=== PATIENT | female | born 1955 | race Caucasian/White ===

== ENCOUNTER 2017-01-30 11:45 | Observation (INO) ==
--- NOTE | 2017-01-30 12:03 | Emergency Department Note ---
Disposition Clinical Impression: Chest pain Qualifiers: Chest pain type: unspecified Qualified Code(s): R07.9 - Chest pain, unspecified Disposition: Admitted As Inpatient Condition: Fair Referrals: Elvin Alejo MD [Primary Care Provider] - Forms: ED Satisfaction Letter Time of Disposition: 14:01 Chest Pain HPI - General Chief Complaint: ED Chest Pain Stated Complaint: chest pain Time Seen by Provider: 01/30/17 11:51 Source: patient Mode of arrival: ambulatory Limitations: no limitations Vital Signs Reviewed: Yes Nursing Notes Reviewed: Yes - History of Present Illness HPI Narrative: Patient is a 61-year-old who comes in complaining of chest pain. Been intermittent for quite some time however over the last day or so as gotten worse. She has a history of open-heart surgery. Pt complaint: chest pain Onset (ago): day(s) Duration: constant Onset: during rest Pain Location: left chest, right chest Severity scale (1-10): 8 Quality: tightness, aching Improves with: nothing Worsens with: nothing - Related Data Home Medications Medication Instructions Recorded Confirmed Alprazolam [Xanax] 2 mg PO TID 05/05/15 06/07/16 Amlodipine [Norvasc] 5 mg PO DAILY 05/05/15 06/07/16 Atorvastatin [Lipitor] 40 mg PO HS 05/05/15 06/07/16 Clopidogrel [Plavix] 75 mg PO DAILY 05/05/15 06/07/16 Ipratropium/Albuterol Neb [Duoneb] 3 ml IH Q6HR 05/05/15 06/07/16 Isosorbide MONOnitrate [Isosorbide 90 mg PO DAILY 05/05/15 06/07/16 Mononitrate] Metoprolol [Lopressor] 25 mg PO BID 05/05/15 06/07/16 Nitroglycerin [Nitrostat] 0.4 mg SL Q5M PRN 05/05/15 06/07/16 Oxycodone HCl 15 mg PO 5XD 05/05/15 06/07/16 Albuterol Sulfate [Albuterol 2 puff IH Q4HR PRN 06/07/16 06/07/16 Inhaler] Aspirin 81 mg PO Q48H 06/07/16 06/07/16 Ergocalciferol (VITAMIN D2) 50,000 unit PO TU 06/07/16 06/07/16 [Vitamin D2] Lansoprazole [Prevacid] 30 mg PO Q48H 06/07/16 06/07/16 Nitroglycerin [Nitrostat] 0.4 mg SL Q5M PRN 06/07/16 06/07/16 [place]-3/Dha/Epa/Fish Oil [Fish Oil 500 mg PO DAILY 06/07/16 06/07/16 500 mg Softgel] Oxygen 2 l NS HS 06/07/16 06/07/16 Previous Rx's Medication Instructions Recorded HYDROmorphone [Dilaudid] 4 mg PO Q6HR PRN #40 tablet 06/07/16 Allergies Allergy/AdvReac Type Severity Reaction Status Date / Time acetaminophen Allergy Mild Rash Verified 06/07/16 12:24 [From Darvocet-N] propoxyphene Allergy Mild Rash Verified 06/07/16 12:24 [From Darvocet-N] gabapentin [From Neurontin] AdvReac Unknown irregular Verified 06/07/16 12:24 heart beat nicotine AdvReac Unknown irregular Verified 06/07/16 12:24 heart beat duloxetine AdvReac Diarrhea Verified 06/07/16 12:24 hydrocodone [From Vicodin] AdvReac See Verified 06/07/16 12:24 Comments Nortriptyline AdvReac Diarrhea Verified 06/07/16 12:24 All systems ED: reviewed and negative except as stated. Constitutional: Denies: fever, chills, weakness, weight change Eyes: Denies: eye pain, eye discharge, vision change ENT ED: Denies: ear pain, throat pain, dental pain, hearing loss, epistaxis, congestion, dysphagia Cardiovascular: Reports: chest pain. Denies: palpitations, dyspnea on exertion , edema, syncope Respiratory: Denies: cough, dyspnea, wheezes, hemoptysis, stridor Gastrointestinal: Reports: abdominal pain. Denies: nausea, vomiting, diarrhea, constipation, hematemesis, melena, hematochezia Genitourinary: Denies: dysuria, frequency, hematuria, discharge Musculoskeletal: Denies: back pain, neck pain, arthralgia, myalgia Integumentary: Denies: rash, abrasion, lesions Neurological: Denies: headache, weakness, numbness, paresthesias, confusion, abnormal gait, vertigo Psychiatric: Denies: anxiety, depression, suicidal thoughts, homicidal thoughts , auditory hallucinations, visual hallucinations Endocrine: Denies: fatigue Hematological/Lymphatic: Denies: easy bleeding, easy bruising Allergic/Immunologic: Denies: facial swelling, urticaria Chest Pain PMH - Past Medical History Medical history: Reports: CHF, COPD, coronary artery disease, GERD, hyperlipidemia, hypertension, other Surgical history: Reports: cholecystectomy, coronary bypass (CABG), hysterectomy Psychiatric history: Reports: anxiety, depression 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 DIRECTOR history - Social History Smoking Status: Current every day smoker Alcohol use: Reports: none Drug use: Reports: none Physical Exam - General Limitations: no limitations General appearance: alert, anxious - Head Head exam: atraumatic, normocephalic, normal inspection - Eye Eye exam: Present: normal appearance, PERRL, EOMI - ENT ENT exam: normal exam, normal oropharynx, mucous membranes moist - Chest Chest inspection: Present: normal inspection, symmetric chest wall rise - Respiratory Respiratory exam: Present: normal lung sounds bilaterally - Cardiovascular Cardiovascular exam: Present: regular rate, normal rhythm, normal heart sounds - Abdominal Exam Abdominal exam: Present: soft, Non-Tender. Absent: tenderness, distention, guarding, rebound, rigidity - Extremities Exam Extremities exam: Present: normal inspection, full ROM. Absent: tenderness, pedal edema - Expanded Lower Extremity Exam Neurovascular/Tendon exam: Absent: motor deficit, sensory deficit, tendon deficit Gait: observed and normal - Back Exam Back exam: Present: normal inspection, full ROM. Absent: tenderness - Neurological Exam Neurological exam: Present: alert, oriented X3 - Psychiatric Psychiatric exam: Present: normal affect, normal mood - Skin Skin exam: Present: warm, dry, intact, normal color Course - Reevaluation(s) Reevaluation #1: 61-year-old previous heart history who comes in complaining of chest pain. Workup here in the emergency departments negative. Patient has not had a recent workup of her heart. Patient will be admitted for further evaluation. Time: 14:00 - Consultations Consultation #1: Discussed with Dr. Westbrook, admit. Time: 14:00 Vital Signs Temperature 98.1 F 01/30/17 11:47 Pulse Rate 76 01/30/17 11:47 Respiratory Rate 16 01/30/17 11:47 Blood Pressure 150/76 01/30/17 11:47 O2 Sat by Pulse Oximetry 96 01/30/17 11:47 Temperature 98.1 F 01/30/17 11:47 Pulse Rate 64 01/30/17 12:46 Respiratory Rate 18 01/30/17 12:46 Blood Pressure 124/64 01/30/17 12:46 O2 Sat by Pulse Oximetry 97 01/30/17 12:46 Oxygen Delivery Oxygen Delivery Room Air Chest Pain - Lab Data Lab results reviewed: Yes I reviewed the patient's lab results. Result diagrams: 01/30/17 12:42 01/30/17 12:42 Lab Results 01/30/17 01/30/17 01/30/17 Range/Units 12:42 12:42 12:42 WBC 6.1 (4.3-11.1) K/mcL RBC 5.13 H (3.82-4.97) M/mcL Hgb 15.0 (11.5-15.4) g/dL Hct 44.0 (35.3-44.9) % MCV 85.8 (83.0-100.0) fL MCH 29.2 (28.0-33.3) pg MCHC 34.1 (31.6-35.5) g/dL RDW 12.8 (11.5-14.5) % Plt Count 164 (140-400) K/mcL MPV 10.6 (9.4-12.4) fL Immature Gran % 0.3 (0-4) % Seg Neutrophils % 60.9 % Lymphocytes % 30.6 % Monocytes % 6.5 % Eosinophils % 1.0 % Basophils % 0.7 % Neutrophils # 3.7 (1.6-8.9) K/mcL Lymphocytes # 1.9 (0.6-4.6) K/mcL Monocytes # 0.4 (0.0-1.3) K/mcL Eosinophils # 0.1 (0.0-0.6) K/mcL Basophils # 0.0 (0.0-0.2) K/mcL PT 11.6 (9.4-12.1) Seconds INR 1.1 APTT 29.0 (26.0-36.0) Seconds Sodium (136-145) mEq/L Potassium (3.5-4.5) mEq/L Chloride (98-109) mEq/L Carbon Dioxide (19-29) mEq/L BUN (7-20) mg/dL Creatinine (0.57-1.11) mg/dL Est GFR ( Amer) (> 60) Est GFR (Non-Af Amer) (> 60) BUN/Creatinine Ratio (6-26) Glucose (70-99) mg/dL Calculated Osmolality (280-300) Calcium (8.6-10.8) mg/dL Total Bilirubin (0.2-1.2) mg/dL Direct Bilirubin (0.0-0.5) mg/dL Indirect Bilirubin (0.0-1.2) mg/dL AST (5-34) Units/L ALT (0-55) Units/L Alkaline Phosphatase (38-126) Units/L Troponin I (0-0.03) ng/mL B-Natriuretic Peptide 73 (0-100) pg/mL Serum Total Protein (6.0-8.3) g/dL Albumin (3.5-5.0) g/dL Globulin (2.4-3.5) g/dL Albumin/Globulin Ratio (1.1-2.2) Amylase (25-125) Units/L Lipase (8-78) Units/L 01/30/17 01/30/17 Range/Units 12:42 12:42 WBC (4.3-11.1) K/mcL RBC (3.82-4.97) M/mcL Hgb (11.5-15.4) g/dL Hct (35.3-44.9) % MCV (83.0-100.0) fL MCH (28.0-33.3) pg MCHC (31.6-35.5) g/dL RDW (11.5-14.5) % Plt Count (140-400) K/mcL MPV (9.4-12.4) fL Immature Gran % (0-4) % Seg Neutrophils % % Lymphocytes % % Monocytes % % Eosinophils % % Basophils % % Neutrophils # (1.6-8.9) K/mcL Lymphocytes # (0.6-4.6) K/mcL Monocytes # (0.0-1.3) K/mcL Eosinophils # (0.0-0.6) K/mcL Basophils # (0.0-0.2) K/mcL PT (9.4-12.1) Seconds INR APTT (26.0-36.0) Seconds Sodium 139 (136-145) mEq/L Potassium 3.6 (3.5-4.5) mEq/L Chloride 100 (98-109) mEq/L Carbon Dioxide 30 H (19-29) mEq/L BUN 9 (7-20) mg/dL Creatinine 0.85 (0.57-1.11) mg/dL Est GFR ( Amer) > 60 (> 60) Est GFR (Non-Af Amer) > 60 (> 60) BUN/Creatinine Ratio 11 (6-26) Glucose 93 (70-99) mg/dL Calculated Osmolality 286 (280-300) Calcium 9.6 (8.6-10.8) mg/dL Total Bilirubin 0.7 (0.2-1.2) mg/dL Direct Bilirubin 0.3 (0.0-0.5) mg/dL Indirect Bilirubin 0.4 (0.0-1.2) mg/dL AST 16 (5-34) Units/L ALT 15 (0-55) Units/L Alkaline Phosphatase 110 (38-126) Units/L Troponin I 0.00 (0-0.03) ng/mL B-Natriuretic Peptide (0-100) pg/mL Serum Total Protein 7.2 (6.0-8.3) g/dL Albumin 3.9 (3.5-5.0) g/dL Globulin 3.3 (2.4-3.5) g/dL Albumin/Globulin Ratio 1.2 (1.1-2.2) Amylase 65 (25-125) Units/L Lipase 33 (8-78) Units/L - Radiology Data Radiology results reviewed: Yes I reviewed the patient's radiology results. Chest X-Ray 01/30/17 11:51 IMPRESSION: 1. No acute abnormality. D/ / Boo Voss MD / Boo Voss MD Interpreting Provider: Boo Voss MD Abdomen/Pelvis CT 01/30/17 11:59 IMPRESSION: 1. No acute abnormality in the abdomen/pelvis. 2. Stable pneumobilia secondary to prior sphincterotomy. D/ / Mariusz Fuentes MD / Mariusz Fuentes MD Interpreting Provider: Mariusz Fuentes MD - EKG Data EKG attestation: Yes I reviewed and interpreted this EKG. EKG shows normal: sinus rhythm Rate: normal Rhythm: NSR Interpretation: no acute changes Heart Score - Score History: Slightly Suspicious EKG: Non Specific repolarisation Disturbance Age: 45-65 Risk Factors: Equal/Greater than 3 risk factor or history of atherosclerotic disease Troponin: Less than normal limit HEART Score Total: 4
[2017-01-30 12:52] LABS: Basophils % 0.7 %; Eosinophils # 0.1 K/mcL (0.0-0.6); Immature Granulocytes % 0.3 % (0-4); Lymphocytes # 1.9 K/mcL (0.6-4.6); Lymphocytes % 30.6 %; Mean Corpuscular HGB Conc 34.1 g/dL (31.6-35.5); Mean Corpuscular Hemoglobin 29.2 pg (28.0-33.3); Mean Corpuscular Volume 85.8 fL (83.0-100.0); Mean Platelet Volume 10.6 fL (9.4-12.4); Monocytes # 0.4 K/mcL (0.0-1.3); Monocytes % 6.5 %; Neutrophils # 3.7 K/mcL (1.6-8.9); Platelet Count 164 K/mcL (140-400); Red Blood Count 5.13 M/mcL (3.82-4.97); Red Cell Distribution Width 12.8 % (11.5-14.5); Segmented Neutrophils % 60.9 %
[2017-01-30 13:00] LABS: INR 1.1; Prothrombin Time 11.6 Seconds (9.4-12.1)
[2017-01-30 13:06] LABS: Alanine Aminotransferase 15 Units/L (0-55); Albumin 3.9 g/dL (3.5-5.0); Albumin/Globulin Ratio 1.2 (1.1-2.2); Alkaline Phosphatase 110 Units/L (38-126); Amylase 65 Units/L (25-125); Aspartate Amino Transferase 16 Units/L (5-34); BUN/Creatinine Ratio 11 (6-26); Bilirubin,Direct 0.3 mg/dL (0.0-0.5); Bilirubin,Indirect 0.4 mg/dL (0.0-1.2); Bilirubin,Total 0.7 mg/dL (0.2-1.2); Blood Urea Nitrogen 9 mg/dL (7-20); Calcium 9.6 mg/dL (8.6-10.8); Carbon Dioxide 30 mEq/L (19-29); Chloride 100 mEq/L (98-109); Globulin 3.3 g/dL (2.4-3.5); Glucose 93 mg/dL (70-99); Lipase 33 Units/L (8-78); Osmolality,Calculated 286 (280-300); Potassium 3.6 mEq/L (3.5-4.5); Sodium 139 mEq/L (136-145); Total Protein 7.2 g/dL (6.0-8.3); eGFR For African Americans > 60 (> 60); eGFR For Non-African Americans > 60 (> 60)
[2017-01-30] MEDS ORDERED: *HR* Morphine 2 MG/ML SYRINGE IVP ONE (13:58)
[2017-01-30] MEDS ORDERED: Ondansetron 4 MG/2 ML VIAL IVP ONE (13:59)
[2017-01-30] MEDS ORDERED: Naloxone 0.4 MG/ML INJ IVP PRN (15:47)
[2017-01-30] MEDS ORDERED: Ondansetron 4 MG/2 ML VIAL IVP PRN (15:47)
--- NOTE | 2017-01-30 15:48 | Electrocardiograph Report ---
[facility] [employer] [facility] [place] Test Date: 2017-01-30 Pat Name: Vivian Mahmood Department: 102 Room: 3B54 Gender: F Director Of Sleep: [facility] : 1955 Requested By: Shailesh Healy Order Number: [id number] Reading MD: Monster Drew MD Measurements Intervals [place] Rate: 69 P: 81 WI: 127 QRS: 75 QRSD: 83 T: 55 QT: 376 QTc: 395 Interpretive Statements SINUS RHYTHM POSSIBLE RIGHT ATRIAL ENLARGEMENT [0.25mV P WAVE] POSSIBLE LEFT ATRIAL ENLARGEMENT [-0.1mV P WAVE IN V1/V2] NONSPECIFIC ST \T\ T-WAVE ABNORMALITY WARNING: DATA QUALITY MAY AFFECT INTERPRETATION Electronically Signed On 01-30-2017 15:46:54 EDT by Monster Drew MD
[2017-01-30] MEDS ORDERED: Nitroglycerin 0.4 MG TAB.SUBL SL PRN (15:57)
[2017-01-30] MEDS ORDERED: Ipratropium/Albuterol Neb 3 ML IH PRN (15:57)
[2017-01-30] MEDS ORDERED: Aspirin 81 MG TAB.CHEW PO SCH (16:00)
--- NOTE | 2017-01-30 16:18 | Internal Med History&Physical ---
<Lobo Manzo - Last Filed: 01/30/17 19:41> Date of Encounter: 01/30/17 Time of Encounter: 15:00 Assessment and Plan (1) Chest pain Current visit: Yes Status: Acute Assess: Ms. Mahmood presents with chief complaint of chest pain that radiates across her chest from left to right and to her abdomen. Patient states that she has had abdominal pain for years but this pain is new and the fact that it radiates to her chest made her think she was having an MO. She qualifies the pain as a severe pressure which makes her nauseated. Patient states this type of chest pain is new. Patient is at moderate risk due to risk factors of CAD, CAD, hx of CABG, hyperlipidemia, and hypertension. Cardiac versus GI issue based on symptomatology and radiation from abdomen to chest. Will work up patient per chest pain protocol as well as GI symptoms. Plan: Continuous cardiac telemetry ordered Trend troponins x2 Supplemental O2 ordered with titration SpO2 monitoring Continue Plavix Continue aspirin therapy Continue Lopressor Continue nitroglycerin 0.4 SL Q15MIN PRN Monitor patient and vital signs Falls precautions/bed rest with bathroom privileges/[id number] due to severe pain Qualifiers: Chest pain type: unspecified Qualified Code(s): R07.9 - Chest pain, unspecified (2) Abdominal pain Current visit: Yes Status: Acute Assess: Patient states that she has had abdominal pain for years but this pain is new and the fact that it radiates to her chest made her think she was having an MO. She qualifies the pain as a severe pressure which makes her nauseated. She reports pain across her abdomen that is generalized. Ms. Mahmood also reports loss of appetite for some time and extreme unintended weight loss. Patient has history of GERD. Plan: IV Protonix 40 mg daily ordered Advance diet as tolerated Bedside swallow evaluation based on patient's report of easily choking on food NPO after midnight ordered due to possible GI consult/intervention in AM Monitor I&O Monitor daily weight Falls precautions/bed rest with bathroom privileges/[id number] due to severe pain Qualifiers: Abdominal location: generalized Qualified Code(s): R10.84 - Generalized abdominal pain (3) GERD (gastroesophageal reflux disease) Current visit: Yes Status: Acute Assess: Patient has history of GERD and abdominal pain. Patient states that her abdominal pain has become worse and more intense recently. Plan: IV Protonix 40 mg daily ordered Advance diet as tolerated Bedside swallow evaluation based on patient's report of easily choking on food NPO after midnight ordered due to possible GI consult/intervention in AM Monitor I&O Monitor daily weight Qualifiers: Esophagitis presence: esophagitis presence not specified Qualified Code(s) : K21.9 - Gastro-esophageal reflux disease without esophagitis (4) Hyperlipidemia Current visit: Yes Status: Chronic Assess: Patient has history of chronic hyperlipidemia. Plan: Lipid panel ordered Continue Lipitor Qualifiers: Hyperlipidemia type: unspecified Qualified Code(s): E78.5 - Hyperlipidemia , unspecified (5) Hypertension Current visit: Yes Status: Chronic Assess: Patient has history of chronic hypertension. Plan: Continue Lopressor Monitor patient and vital signs Qualifiers: Hypertension type: essential hypertension Qualified Code(s): I10 - Essential (primary) hypertension (6) COPD (chronic obstructive pulmonary disease) Current visit: No Status: Chronic Assess: Patient presents with history of chronic obstructive pulmonary disease. Patient currently smokes one half pack per day and is currently on 2 L of oxygen at home. Plan: Supplemental O2 ordered with titration if SpO2 <92% SpO2 monitoring Continue patient's inhalers and medications for COPD/asthma exacerbations/ control Patient educated on smoking cessation Nicotine patch contraindicated due to patient's report of adverse reaction with use. Patient's allergy list has been updated to reflect this allergy. Qualifiers: COPD type: chronic bronchitis Chronic bronchitis type: unspecified Qualified Code(s): J42 - Unspecified chronic bronchitis (7) DVT prophylaxis Current visit: Yes Status: Acute Assess: And placed on DVT prophylaxis due to DVT protocol and current bed rest status. Plan: Continue Plavix Continue aspirin therapy Anti-embolic hose ordered bilaterally for lower legs Internal Medicine - H&P: HPI Chief complaint: Chest pain/abdominal pain Admitted From: Emergency Dept Plans for Post Hospital Care: Home History of present illness: Ms. Mahmood is a 61 year old female who presents from the ED with chief complaint of chest pain that radiates across her chest from left to right and to her abdomen. Patient states that she has had abdominal pain for years but this pain is new and the fact that it radiates to her chest made her think she was having an MO. She qualifies the pain as a severe pressure which makes her nauseated. She reports pain across her abdomen that is generalized. Ms. Mahmood also reports loss of appetite for some time, extreme unintended weight loss, and pain/neck pain related to previous surgeries. Ms. Mahmood denies vomiting, hematemesis, diarrhea, constipation, melena, hematochezia, cough, SOB, wheezes, hemoptysis, edema, fever, chills, recent illness, or presyncope/syncope. Patient's medical history includes CHF, COPD, CAD, GERD, hyperlipidemia, hypertension, and melanoma. Patient is to be admitted as observation status continuous cardiac telemetry, troponins 2, IV Protonix 40 mg daily, supplemental O2 with SPO2 monitoring, and falls precautions to to patient's severe pain. Swallow evaluation to be done at bedside based on patient's reported becoming choked on food easily. Diet will be advanced as tolerated based on swallow evaluation.patient placed nothing by mouth aft GI procedure/consult in a.m. Past Med Surg Social Fam HX - Past Medical History Source: patient Medical history: CHF, COPD, coronary artery disease, GERD, hyperlipidemia, hypertension Psychiatric history: anxiety, depression - Past Surgical History Surgical History: cholecystectomy, coronary bypass (CABG), hysterectomy, orthopedic, other (Spinal/neck surgeries x2, placement of 2 rods in back, and metal plate in left hand) - Social History Smoking Status: Current every day smoker Packs per day: 1/2 PPD Smokeless Tobacco Status: No Alcohol use: none Drug use: none Occupational status: unemployed Current living situation: Home - Independent Activity Level: Independent ambulation (Has assistive walking device at home but does not use) Recent Out of Country Travel Within the Last 8 Weeks: No Exposure or Possible Exposure to Illness During Travel: No - Family History Sister Race: Family Member Ethnicity: Non- Living Status: Age at : 42 Cause of : Lung cancer Hx Family Respiratory Disorders: Yes (Lung cancer) Father Race: Family Member Ethnicity: Non- Living Status: Age at : 70 Cause of : HD Hx Family Cardiac Disorders: Yes (HD, HTN) Hx Family Endocrine Disorder: Yes (DM) Mother Race: Family Member Ethnicity: Non- Living Status: Age at : 65 Cause of : Breast cancer Hx Family Cancer: Yes (Breast cancer) Brother Race: Family Member Ethnicity: Non- Living Status: Age at : 42 Cause of : MO Hx Family Cardiac Disorders: Yes (MO) Internal Medicine - H&P: Meds Alprazolam [Xanax] 1 mg PO TID 05/05/15 [History] Amlodipine [Norvasc] 5 mg PO DAILY 05/05/15 [History] Atorvastatin [Lipitor] 40 mg PO HS 05/05/15 [History] Clopidogrel [Plavix] 75 mg PO DAILY 05/05/15 [History] Ipratropium/Albuterol Neb [Duoneb] 3 ml IH Q6HR PRN 05/05/15 [History] Metoprolol [Lopressor] 25 mg PO BID 05/05/15 [History] Oxycodone HCl 15 mg PO 5XD PRN 05/05/15 [History] Albuterol Sulfate [Albuterol Inhaler] 2 puff IH Q4HR PRN 06/07/16 [History] Aspirin 81 mg PO Q48H 06/07/16 [History] Nitroglycerin [Nitrostat] 0.4 mg SL Q5M PRN 06/07/16 [History] Oxygen 2 l NS HS 06/07/16 [History] Guaifenesin [Mucinex] 600 mg PO Q12H PRN 01/30/17 [History] Isosorbide MONOnitrate (24 HR) [Imdur] 30 mg PO DAILY 01/30/17 [History] Lactose-Reduced Food [Ensure Liquid] 1 bottle PO TID 01/30/17 [History] Omeprazole [PriLOSEC] 40 mg PO DAILY 01/30/17 [History] Ondansetron HCl [Zofran] 4 mg PO TID PRN 01/30/17 [History] Promethazine HCl 12.5 - 25 mg PO Q8H PRN 01/30/17 [History] Allergies acetaminophen [From Darvocet-N] Allergy (Mild, Verified 06/07/16 12:24) Rash bleeding ulcer from tylenol propoxyphene [From Darvocet-N] Allergy (Mild, Verified 06/07/16 12:24) Rash gabapentin [From Neurontin] Adverse Reaction (Unknown, Verified 06/07/16 12:24) irregular heart beat duloxetine Adverse Reaction (Verified 06/07/16 12:24) Diarrhea hydrocodone [From Vicodin] Adverse Reaction (Verified 06/07/16 12:24) See Comments bleeding lorazepam [From Ativan] Adverse Reaction (Verified 01/30/17 16:29) Rash Nortriptyline Adverse Reaction (Verified 06/07/16 12:24) Diarrhea unknown nicotine patch Adverse Reaction (Uncoded 01/30/17 16:29) Palpitations All Systems PM: A 10-system review of systems was performed and is negative for pertinent findings except as documented above in the HPI. - Constitutional Constitutional: as per HPI, anorexia, weakness, weight loss - EENT Eyes: no change in vision, no discharge, no pain, no photophobia Ears: no ear discharge, no ear pain, no tinnitus Nose, mouth and throat: no dysphagia, no nasal discharge, no neck pain, no sore throat - Breasts Breasts: as per HPI - Cardiovascular Cardiovascular ROS IM: as per HPI, chest pain - Respiratory Respiratory: no cough, no dyspnea, no wheezing, no excessive phlegm production - Gastrointestinal Gastrointestinal: as per HPI, abdominal pain, nausea - Genitourinary Genitourinary: no change in urinary stream, no dysuria, no flank pain, no hematuria Menstruation: as per HPI, post hysterectomy - Musculoskeletal Musculoskeletal ROS IM: as per HPI, back pain, neck pain - Integumentary Integumentary IM: no rash, no unusual bruising - Neurological Neurological ROS: no confusion, no convulsions, no focal weakness, no numbness, no tingling, no tremor(s) - Psychiatric Psychiatric: as per HPI, anxiety, change in appetite, depression - Endocrine Endocrine IM: as per HPI - Hematologic/Lymphatic Hematologic/Lymphatic: no easy bruising - Allergic/Immunologic Allergic/Immunologic: as per HPI - Constitutional Vitals: Temp Pulse Resp BP Pulse Ox 98.1 F 60 18 149/71 98 01/30/17 11:47 01/30/17 13:59 01/30/17 14:59 01/30/17 14:59 01/30/17 13:59 General appearance: Present: cooperative, A&O X 3, pleasant, severe distress, underweight, loss of weight, answers questions appropriately - Head Head exam: Present: atraumatic, normocephalic - Eye Eye exam: Present: PERRL, conjuntiva pink, sclera anicteric Pupils: Present: PERRL - ENT ENT exam: Present: normal exam, normal external ear exam - Neck Neck exam general surgery: Present: supple, trachea midline. Absent: lymphadenopathy - Respiratory Respiratory exam: Present: CTAB. Absent: accessory muscle use, rales, rhonchi, wheezes - Cardiovascular Cardiovascular exam: Present: RRR, +S1, +S2. Absent: diastolic murmur, gallop, rubs, systolic murmur - GI/Abdominal GI/Abdominal exam: Present: guarding, normal bowel sounds, soft, tenderness - Rectal Rectal exam: Present: deferred - Additional comments: exam deferred. - Extremities Exam Extremities exam: Present: warm, radial pulses palpable and symetrical. Absent : calf tenderness, cyanotic, pedal edema - Back Exam Back exam: Present: normal inspection - Neurological Exam Neurological exam: Present: CN II-XII intact, oriented X3, no focal deficits. Absent: pronater drift, facial droop, speech deficit - Psychiatric Psychiatric exam: Present: anxious - Skin Skin exam: Present: dry, intact Internal Med - H&P Results - Labs CBC & Chem 7: 01/30/17 12:42 01/30/17 12:42 - EKG Data EKG shows normal: sinus rhythm - EKG Data Prior EKG available for review: yes EKG comments: 01/30/17 16:32 EKG dated 12/21/15 shows sinus rhythm, inferior myocardial infarction (probably old). EKG dated 01/30/17 shows sinus rhythm, possible right atrial enlargement [ 0.25mV P wave], possible left atrial enlargement [-0.1mV P wave in V1/V2], nonspecific ST and T-wave abnormality. - Diagnostic Studies Chest x-ray Additional comments: Impressions Chest X-Ray 01/30/17 11:51 IMPRESSION: 1. No acute abnormality. D/ / Boo Voss MD / Boo Voss MD Interpreting Provider: Boo Voss MD CT scan - abdomen Additional comments: Impressions Abdomen/Pelvis CT 01/30/17 11:59 IMPRESSION: 1. No acute abnormality in the abdomen/pelvis. 2. Stable pneumobilia secondary to prior sphincterotomy. D/ / Mariusz Fuentes MD / Mariusz Fuentes MD Interpreting Provider: Mariusz Fuentes MD <Jenny Carver - Last Filed: 01/31/17 07:51> Date of Encounter: 01/31/17 Internal Medicine - H&P: HPI History of present illness: Ms. Mahmood is a 61 year old female All Systems PM: A 10-system review of systems was performed and is negative for pertinent findings except as documented above in the HPI. - Constitutional Vitals: Temp Pulse Resp BP Pulse Ox 98.0 F 55 14 138/76 96 01/31/17 03:49 01/31/17 03:49 01/31/17 03:49 01/31/17 03:49 01/31/17 03:49 Internal Med - H&P Results - Labs CBC & Chem 7: 01/31/17 01:27 01/31/17 01:27 Labs: Short CBC 01/31/17 Range/Units 01:27 WBC 8.2 (4.3-11.1) K/mcL Hgb 13.8 (11.5-15.4) g/dL Hct 40.3 (35.3-44.9) % Plt Count 149 (140-400) K/mcL Neutrophils # 4.7 (1.6-8.9) K/mcL BMP 01/31/17 01:27 Sodium 140 Potassium 4.2 Chloride 100 Carbon Dioxide 33 H BUN 17 Creatinine 0.91 Glucose 98 Calcium 9.1 Cardiac Enzymes 01/30/17 01/31/17 Range/Units 18:52 01:27 Troponin I 0.00 0.01 (0-0.03) ng/mL Liver Function 01/31/17 Range/Units 01:27 Total Bilirubin 0.6 (0.2-1.2) mg/dL AST 13 (5-34) Units/L ALT 9 (0-55) Units/L Alkaline Phosphatase 102 (38-126) Units/L Albumin 3.6 (3.5-5.0) g/dL Urine 01/30/17 Range/Units 17:30 Urine Color Yellow (Yellow) Urine Clarity Cloudy A (Clear) Urine pH 6.0 (5.0-8.0) pH Units Ur Specific [place]born 1.017 (1.010-1.025) Urine Protein Trace (Neg-Trace) mg/dL Urine Glucose (UA) Normal (Normal) mg/dL - Attending Attestation This is a late entry for a patient I examined and reviewed laboratory, imaging and all diagnostic data on 01/30/17. My medical decision-making was reviewed with Lobo Manzo - [place]. I agree with the documented findings, disposition and treatment plan as described above. History and exam by me shows: atypical chest pain in a patient at risk for ACS because of CAD s/p CABG and smoking. Negative troponins, EKG, CXR. Follow up serial troponins, and stress test in AM if negative. Patient also complains of upper abdominal pain related to hernia repair with mesh, dysphagia, and weight loss for years, I explained to the patient that she needs to be seen in the surgery clinic. Speech therapy consulted.
[2017-01-30] MEDS: *HR* OxyCODONE Immed Rel 5 MG TABLET PO PRN ×2 (17:38→23:31)
[2017-01-30] MEDS: Pantoprazole 40 MG VIAL IVP SCH (17:39)
[2017-01-30 18:46] LABS: Bilirubin,Urine Negative (Negative); Blood,Urine Trace (Negative); Clarity,Urine Cloudy (Clear); Color,Urine Yellow (Yellow); Glucose,Urine (UA) Normal (Normal); Ketones,Urine Negative (Negative); Leukocyte Esterase,Urine Moderate (Negative); Nitrite,Urine Negative (Negative); Protein,Urine Trace mg/dL (Neg-Trace); Specific Gravity,Urine 1.017 (1.010-1.025); Urobilinogen,Urine Normal (Normal)
[2017-01-30 18:47] LABS: Bacteria,Urine Moderate per hpf (None-Few); Hyaline Casts,Urine Few per lpf (None-Few); Squamous Epithelial Cell,Urine Many per lpf (None-Few); WBC,Urine 15-30 per hpf (0-3)
[2017-01-30] MEDS ORDERED: ALPRAZolam 1 MG TABLET PO SCH (21:00)
[2017-01-30] MEDS: ALPRAZolam 1 MG TABLET PO SCH (23:46)
[2017-01-31 01:46] LABS: Basophils % 0.4 %; Eosinophils # 0.1 K/mcL (0.0-0.6); Eosinophils % 1.6 %; Hematocrit 40.3 % (35.3-44.9); Hemoglobin 13.8 g/dL (11.5-15.4); Immature Granulocytes % 0.2 % (0-4); Lymphocytes # 2.8 K/mcL (0.6-4.6); Lymphocytes % 34.1 %; Mean Corpuscular HGB Conc 34.2 g/dL (31.6-35.5); Mean Corpuscular Hemoglobin 29.9 pg (28.0-33.3); Mean Corpuscular Volume 87.2 fL (83.0-100.0); Monocytes # 0.6 K/mcL (0.0-1.3); Monocytes % 6.8 %; Neutrophils # 4.7 K/mcL (1.6-8.9); Platelet Count 149 K/mcL (140-400); Red Blood Count 4.62 M/mcL (3.82-4.97); Segmented Neutrophils % 56.9 %
[2017-01-31 02:03] LABS: Alanine Aminotransferase 9 Units/L (0-55); Albumin 3.6 g/dL (3.5-5.0); Albumin/Globulin Ratio 1.4 (1.1-2.2); Alkaline Phosphatase 102 Units/L (38-126); Aspartate Amino Transferase 13 Units/L (5-34); BUN/Creatinine Ratio 19 (6-26); Bilirubin,Total 0.6 mg/dL (0.2-1.2); Blood Urea Nitrogen 17 mg/dL (7-20); Calcium 9.1 mg/dL (8.6-10.8); Carbon Dioxide 33 mEq/L (19-29); Chloride 100 mEq/L (98-109); Globulin 2.6 g/dL (2.4-3.5); Glucose 98 mg/dL (70-99); Osmolality,Calculated 292 (280-300); Phosphorous 4.8 mg/dL (2.3-4.7); Potassium 4.2 mEq/L (3.5-4.5); Sodium 140 mEq/L (136-145); Total Protein 6.2 g/dL (6.0-8.3); eGFR For African Americans > 60 (> 60); eGFR For Non-African Americans > 60 (> 60)
[2017-01-31] MEDS: *HR* OxyCODONE Immed Rel 5 MG TABLET PO PRN ×2 (06:13→14:58)
[2017-01-31] MEDS ORDERED: Regadenoson 0.4 MG/5 ML SYRINGE IVP ONE (06:24)
[2017-01-31] MEDS ORDERED: amLODIPine 5 MG TABLET PO SCH (09:00)
[2017-01-31] MEDS ORDERED: Isosorbide MONOnitrate (24 HR) 30 MG TAB.ER.24H PO SCH (09:00)
[2017-01-31] MEDS ORDERED: ALPRAZolam 1 MG TABLET PO SCH (09:00)
[2017-01-31] MEDS: Pantoprazole 40 MG VIAL IVP SCH (09:25)
[2017-01-31] MEDS: ALPRAZolam 1 MG TABLET PO SCH ×2 (09:25→14:58)
[2017-01-31 11:09] VITALS: BP 146/82
--- NOTE | 2017-01-31 12:28 | Nuclear Medicine Stress Report ---
Regadenoson Nuclear Stress Name: Vivian Mahmood Date of Study: 01/31/2017 Date: 1955 Ht: 64.0 in Medical Record#: [id number] Age: 61 Wt: 98.0 lb Gender: Female Order #: [id number] Location: [facility] Room: [facility] Supervising Provider: Magy Denny CNP Reading Physician: Johnna Hoover DO Ordering Physician: Rebecca Berg CNP Primary Care Physician: Elvin Alejo M.D. Stress Technologist: Prasad Jacinto, ANETTE, CCT Percussion Instrument Tuner: Hema Can Indications: Chest Pain, Coronary Artery Disease Impression: Perfusion imaging was negative for ischemia. 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 Pharmacologic ECG was negative for ischemia at the level of heart rate achieved. Gated EF = 66%. History: Hypertension Hypercholesteremia History of Smoking Prior PCI History of Coronary Artery Bypass Surgery Stress Test Summary: Stress Test Type: Pharmacologic Regadenoson 0.4mg/5ml given IV Baseline Information: Initial Heart Rate: 68 Blood Pressure: 140/82 Stress Information: Stress Time: 4 min 00 sec Test Terminated Due to (primary): Completed Protocol Maximum Blood Pressure: 172/100 Maximum Heart Rate: 103 Percent Maximum Heart Rate Achieved: 65 Double Product: [id number] METS Reached: 1 Symptoms: Shortness of breath, Stomach cramps, Headache Nuclear Summary: SPECT myocardial perfusion imaging using Tc99m Sestamibi given intravenously was performed at rest and following cardiac stress testing. The resting images were obtained following initial dose of 10.6 mCi. Following stress an additional dose of 34.5 mCi was given at peak exercise or 30 seconds post regadenoson infusion. Medication Given: Time Medication Dose Units Route Findings: Stress Note * Resting ECG demonstrated normal sinus rhythm with nonspecific ST abnormalities and increased voltage. * Pharmacologic stress ECG is negative for ischemia at level of heart rate achieved. * No arrhythmias were noted during stress. * Patient had no chest pain during stress. Hemodynamic responses * Normal hemodynamic responses to pharmacologic stress. Study Quality * Study quality was fair. Gated EF % * Gated EF = 66%. Left Ventricle * The left ventricle is not dilated. TID * No evidence of transient ischemic dilatation. Lung Uptake * There is no evidence of increase lung uptake. PERFUSION * There is a small sized, moderate intensity fixed perfusion defect involving the basal to mid inferolateral wall. Wall motion is abnormal in this area. Findings represent infarct. * Other areas demonstrate normal rest and stress perfusion. Updated by Johnna Hoover on 01/31/2017 12:21:42 PM electronically signed on 01/31/2017 12:23:51 PM with status of Final
--- NOTE | 2017-01-31 12:46 | Discharge Summary ---
Date of Encounter: 01/31/17 Time of Encounter: 09:10 - Discharge Diagnosis (1) Chest pain Priority: Primary Status: Acute Comments: Patient presented to the emergency room with midsternal chest heaviness for 2 days. Onset while she was sitting watching TV. It was intermittent, lasting 3- 4 hours at a time. She reports that she did have some nausea and shortness of breath with this. It became worse yesterday. Patient indicates pain that now at left upper abdomen/left inferior rib area. She says it feels like a pressure. She is not having the chest heaviness anymore, she said she did have it during the stress test however. She reports abdominal pain, midepigastric. She reports approximately 40-50 pound weight loss in 4 years. She says that she sees Dr. Sanchez for cardiology, she sees Dr. Worley for GI issues. She said that she recently had an EGD and colonoscopy and is unsure of the results. She said that she recently saw her primary care physician who is scheduled for multitude of tests for her. She was to have some test today, however she missed it due to being here. Stress test today showed gated EF 66%, negative for ischemia or infarct. Troponins were negative 3. EKG normal sinus rhythm without signs of ischemia. S1 and S2, regular rate and rhythm. Patient does not have any peripheral edema. Cardiology was consult prior to patient's discharge. They do not feel that this is cardiac in nature. Patient will need to follow-up with Dr. Worley outpatient. Qualifiers: Chest pain type: unspecified Qualified Code(s): R07.9 - Chest pain, unspecified (2) CAD (coronary artery disease) of artery bypass graft Priority: Secondary Status: Chronic Comments: History of coronary artery disease, CABG. Patient had heart catheter about a year ago here. Patient has hyperlipidemia as well as hypertension. We will continue her medications at home. Qualifiers: [place] vs. transplanted heart: [place] heart Associated angina: angina presence unspecified Qualified Code(s): I25.810 - Atherosclerosis of coronary artery bypass graft(s) without angina pectoris (3) COPD (chronic obstructive pulmonary disease) Priority: Secondary Status: Chronic Comments: No acute exacerbation. Continue home medications. Lungs are clear and diminished anteriorly and posteriorly. Qualifiers: COPD type: chronic bronchitis Chronic bronchitis type: unspecified Qualified Code(s): J42 - Unspecified chronic bronchitis (4) Abdominal pain Priority: Secondary Status: Chronic Comments: Patient reports that she has had abdominal pain for several years. The pain that she is having now is unchanged, other than it radiates to her chest. This was concerning to her for IA. Pain is located in epigastric area and left upper abdomen/inferior ribs. I was unable to locate anything other than stomach by a differential for H. pylori in 2015. Patient states that she has lost 40-50 pounds in the last 4 years due to abdominal pain. She says that the pain is sharp, sometimes pressure, with nausea. She does have a history of GERD. So she is compliant with her medications and diet. Patient had a CT abdomen and pelvis. She is status post hysterectomy and cholecystectomy. There is no acute abnormality in the abdomen or pelvis. Labs are unremarkable, liver enzymes are within normal limits. Epigastric area and left upper abdomen are tender to palpation. Her abdomen is soft and nontender otherwise with bowel sounds present. She denies any vomiting or diarrhea. Patient will need to follow up with Dr. Robles and or primary care on discharge. She will continue her home medications. Qualifiers: Abdominal location: epigastric Qualified Code(s): R10.13 - Epigastric pain (5) GERD (gastroesophageal reflux disease) Priority: Secondary Status: Chronic Comments: Plan as above Qualifiers: Esophagitis presence: esophagitis presence not specified Qualified Code(s) : K21.9 - Gastro-esophageal reflux disease without esophagitis (6) Hyperlipidemia Priority: Secondary Status: Chronic Comments: Chronic. Continue Lipitor. Qualifiers: Hyperlipidemia type: unspecified Qualified Code(s): E78.5 - Hyperlipidemia , unspecified (7) Hypertension Priority: Secondary Status: Chronic Comments: Chronic. Well-controlled in inpatient setting. Continue home medications. Qualifiers: Hypertension type: essential hypertension Qualified Code(s): I10 - Essential (primary) hypertension (8) DVT prophylaxis Priority: Secondary Status: Acute Comments: Continue Plavix and aspirin. ALFRED barnes bilaterally. - Discharge Medications Home Medications: Alprazolam [Xanax] 1 mg PO TID 05/05/15 [History] Amlodipine [Norvasc] 5 mg PO DAILY 05/05/15 [History] Atorvastatin [Lipitor] 40 mg PO HS 05/05/15 [History] Clopidogrel [Plavix] 75 mg PO DAILY 05/05/15 [History] Ipratropium/Albuterol Neb [Duoneb] 3 ml IH Q6HR PRN 05/05/15 [History] Metoprolol [Lopressor] 25 mg PO BID 05/05/15 [History] Oxycodone HCl 15 mg PO 5XD PRN 05/05/15 [History] Albuterol Sulfate [Albuterol Inhaler] 2 puff IH Q4HR PRN 06/07/16 [History] Aspirin 81 mg PO Q48H 06/07/16 [History] Nitroglycerin [Nitrostat] 0.4 mg SL Q5M PRN 06/07/16 [History] Oxygen 2 l NS HS 06/07/16 [History] Guaifenesin [Mucinex] 600 mg PO Q12H PRN 01/30/17 [History] Isosorbide MONOnitrate (24 HR) [Imdur] 30 mg PO DAILY 01/30/17 [History] Lactose-Reduced Food [Ensure Liquid] 1 bottle PO TID 01/30/17 [History] Omeprazole [PriLOSEC] 40 mg PO DAILY 01/30/17 [History] Ondansetron HCl [Zofran] 4 mg PO TID PRN 01/30/17 [History] Promethazine HCl 12.5 - 25 mg PO Q8H PRN 01/30/17 [History] Allergies/Adverse Reactions: Allergies acetaminophen [From Darvocet-N] Allergy (Mild, Verified 06/07/16 12:24) Rash bleeding ulcer from tylenol propoxyphene [From Darvocet-N] Allergy (Mild, Verified 06/07/16 12:24) Rash gabapentin [From Neurontin] Adverse Reaction (Unknown, Verified 06/07/16 12:24) irregular heart beat duloxetine Adverse Reaction (Verified 06/07/16 12:24) Diarrhea hydrocodone [From Vicodin] Adverse Reaction (Verified 06/07/16 12:24) See Comments bleeding lorazepam [From Ativan] Adverse Reaction (Verified 01/30/17 16:29) Rash Nortriptyline Adverse Reaction (Verified 06/07/16 12:24) Diarrhea unknown nicotine patch Adverse Reaction (Uncoded 01/30/17 16:29) Palpitations Procedures/tests Complete & Pending: Procedures Performed prior 72 hours Category Date Time Status NM nathaniel perf SPECT multi [NM] Routine Exams 01/31/17 05:57 Taken SP pharm nuclear stress Routine Y 01/30/17 18:50 Completed Date of admission: 01/30/17 14:14 Primary care physician: Elvin Alejo MD Consults: 01/30/17 18:51 Consult to Speech Therapy [CONS] Routine Comment: Evaluate, develop and implement POC Reason for Consult: Assess patient for possible inability to swallow Call Completed: No Discharging clinician: Rebecca Berg Anticipated date of discharge: 01/31/17 - Patient Status Disposition: Home, Self-Care Condition: Good Functional capacity at discharge: independent ambulation Overall status at discharge: patient is back to baseline - Discharge Instructions Follow Up With: Elvin Alejo MD [Primary Care Provider] - Juan Worley MD [Partnered Physician] - Additional Instructions: Please follow-up with her primary care physician in the next 7-10 days for evaluation of hospital stay. Follow up with GI outpatient for continued evaluation of chronic abdominal pain. Return to the emergency department for any other concerns or problems or if your pain returns or worsens. Resume home medications. - Diet and Activity Activity: increase activity as tolerated Diet: advance to your usual diet Hospital course: Ms. Mahmood is a 61 year old female with history of hypertension, hyperlipidemia, CABG, coronary artery disease, GERD, fibromyalgia, weight loss. Patient presented to the emergency room with chief complaint of chest pain that radiated across her chest from left to right anterior abdomen. She said the heaviness began 2 days ago, onset while she was sitting. She says that it was intermittent lasting for 3-4 hours at a time for 3-4 days, it was worse yesterday. She states that she had abdominal pain for years but this pain is new and the fact that radiates to her chest me to think that she was having an IA. She says the pain as a severe pressure that comes with nausea. Her abdominal pain is located in epigastric area as well as right upper quadrant has been chronic for multiple years. She reports weight loss of 40-50 pounds over the last 2 years and decreased appetite. She also says that she has chronic neck and back pain related to prior surgery and injuries. He had an abdominal/pelvis CT that was negative for any acute processes. She is status post cholecystectomy and hysterectomy. Her troponins were negative 3. Stress test showed a gated EF of 66% and negative for ischemia or infarct. Her labs are within normal limits. There is no elevation of liver enzymes or white count. Vital signs are stable. She is alert and awake and interactive. S1 and S2 heard with regular rate and rhythm. Lungs are clear and diminished anteriorly and posteriorly. Abdomen is flat and soft with bowel sounds present. She is tender to palpation in epigastric and left upper quadrant area. She has no peripheral edema. She has +2 radial and pedal pulses bilaterally. She has normal range of motion. She says that lying on her back for the stress test "almost killed me". She has chronic neck and back pain from prior injuries. Her labs are indicative of a potential urinary tract infection. Patient denies any symptoms she also denies that she could possibly have a urinary tract infection because, "I wash down there every time I be and have sex. I am clean." She refuses any antibiotic treatment. We will need to continue to monitor culture and sensitivity for needs and contact the patient. Cardiology consult is pending. When they sign off patient is stable and appropriate for discharge. - Time Spent with Patient Total time spent providing and/or coordinating discharge services: Less than 30 minutes - Constitutional Vitals: Temp Pulse Resp BP Pulse Ox 98.2 F 65 24 146/82 98 01/31/17 11:06 01/31/17 11:06 01/31/17 11:06 01/31/17 11:06 01/31/17 11:06 General appearance: Present: cooperative, A&O X 3, no acute distress, severe distress, underweight, loss of weight, answers questions appropriately. Absent : pleasant - Head Head exam: Present: normal inspection - Eye Eye exam: Present: normal appearance, conjuntiva pink. Absent: nystagmus - Neck Neck exam general surgery: Present: tenderness. Absent: full ROM, lymphadenopathy, normal inspection - Respiratory Respiratory exam: Present: decreased breath sounds, CTAB. Absent: rales, rhonchi, stridor, wheezes - Cardiovascular Cardiovascular exam: Present: RRR, +S1, +S2. Absent: clicks, diastolic murmur, gallop, systolic murmur - Extremities Exam Extremities exam: Present: normal inspection, warm, radial pulses palpable and symetrical. Absent: pedal edema, tenderness - Neurological Exam Neurological exam: Present: alert, oriented X3, no focal deficits, strengths equal and symetr throughout. Absent: motor sensory deficit, facial droop, speech deficit
--- NOTE | 2017-01-31 14:25 | Cardiology Consult Note ---
Date of Encounter: 01/31/17 Time of Encounter: 13:20 Assessment and Plan (1) Chest pain Current Visit: Yes Status: Acute Patient presents with chest pain and reproducible left lower chest wall tenderness with extension to left upper quadrant and epigastric regions also tender to palpation mostly around surgical scars in epigastric region. Patient complains of tenderness surrounding the sternal area with sternal wires from CABG that are palpable and visible blood in unexposed. Patient was evaluated for chest pain with troponins 3 which were negative, EKG chest x-ray which both show no signs of ischemia and have sinus rhythms, stress tests taken today which shows a gated EF 66% and negative for ischemia and shows prior infarct involving the basal mid inferolateral wall. Currently have low suspicion for cardiac involvement at this time recommend continue medical management on patient's cardiac regimen from previous CABG and follow up with GI concerning patient's early satiety and abdominal pain symptoms. Of note patient states she has a history of cancer in the family with family members currently severely ill and is very concerned given her symptoms of abdominal pain and weight loss of approximately 60-70 pounds which has been over span of approximately 10 years. Patient does explain difficulty eating with anorexia and early satiety as well. CT scan abdomen and pelvis was also accomplished and was negative for acute intra-abdominal or pelvis abnormalities , but did show stable pneumobilia secondary to prior sphincterotomy. No further cardiology recommendations at this time. Thank you for the consult. Please consult again if needed. Qualifiers: Qualified Code(s): R07.9 - Chest pain, unspecified Discussion w patient/family: The assessment and plan as outlined above was discussed with the patient and/or family members who expressed understanding and agreement. All questions were answered. Thank you for involving us in the care of your patient. Please call with any questions. History of Present Illness Consult date: 01/31/17 Requesting physician: Rebecca Berg Consult reason: Chest Pain Chief complaint: Chest Pain History of present illness: Ms. Mahmood is a 61 year old female with a history of prior PCI CABG, hypertension , hypercholesterolemia and current smoker was recently admitted for chief complaint of chest pain more across her epigastric and left upper quadrant area with radiation A [id number] and mid substernal pressure-like squeeze with radiation down left arm and left jaw. Patient states symptoms lasted for about an hour to an hour and half 1 day ago but is currently not having the substernal pressure at this time. Patient states that she continues to have the intermittent pain symptoms in her epigastric and left upper quadrant area as well as having lower abdominal and umbilical/periumbilical pain. Patient states that her pain symptoms tend to start in her abdomen and then leads to symptoms and epigastric and left upper quadrant area and then to her chest. Patient states that sitting down or laying down makes her pain worse but getting up and stand and actually makes the pain better. Patient states that she has dyspnea on exertion that has been present since her CABG. Patient also reports early satiety and weight loss with difficulty gaining weight. Patient has a history of anxiety and patient's ex- who is in the room states that she worries a lot. Patient is also under some psychosocial stressors of family members with similar illnesses richer weighing heavily on patient per the patient. Past Med Surg Social Fam HX - Past Medical History Attestation: Yes The following information was validated with the patient. Source: patient Medical history: CHF, COPD, coronary artery disease, GERD, hyperlipidemia, hypertension Psychiatric history: anxiety, depression - Past Surgical History Surgical History: cholecystectomy, coronary bypass (CABG), hysterectomy, orthopedic, other (Spinal/neck surgeries x2, placement of 2 rods in back, and metal plate in left hand) - Social History Smoking Status: Current every day smoker Packs per day: 1/2 PPD Smokeless Tobacco Status: No Alcohol use: none Drug use: none - Family History Father Race: Family Member Ethnicity: Non- Living Status: Age at : 70 Cause of : HD Hx Family Cardiac Disorders: Yes (HD, HTN) Hx Family Endocrine Disorder: Yes (DM) Mother Race: Family Member Ethnicity: Non- Living Status: Age at : 65 Cause of : Breast cancer Hx Family Cancer: Yes (Breast cancer) Brother Race: Family Member Ethnicity: Non- Living Status: Age at : 42 Cause of : [place] Hx Family Cardiac Disorders: Yes ([place]) Sister Race: Family Member Ethnicity: Non- Living Status: Age at : 42 Cause of : Lung cancer Hx Family Respiratory Disorders: Yes (Lung cancer) Medications and Allergies Alprazolam [Xanax] 1 mg PO TID 05/05/15 [History] Amlodipine [Norvasc] 5 mg PO DAILY 05/05/15 [History] Atorvastatin [Lipitor] 40 mg PO HS 05/05/15 [History] Clopidogrel [Plavix] 75 mg PO DAILY 05/05/15 [History] Ipratropium/Albuterol Neb [Duoneb] 3 ml IH Q6HR PRN 05/05/15 [History] Metoprolol [Lopressor] 25 mg PO BID 05/05/15 [History] Oxycodone HCl 15 mg PO 5XD PRN 05/05/15 [History] Albuterol Sulfate [Albuterol Inhaler] 2 puff IH Q4HR PRN 06/07/16 [History] Aspirin 81 mg PO Q48H 06/07/16 [History] Nitroglycerin [Nitrostat] 0.4 mg SL Q5M PRN 06/07/16 [History] Oxygen 2 l NS HS 06/07/16 [History] Guaifenesin [Mucinex] 600 mg PO Q12H PRN 01/30/17 [History] Isosorbide MONOnitrate (24 HR) [Imdur] 30 mg PO DAILY 01/30/17 [History] Lactose-Reduced Food [Ensure Liquid] 1 bottle PO TID 01/30/17 [History] Omeprazole [PriLOSEC] 40 mg PO DAILY 01/30/17 [History] Ondansetron HCl [Zofran] 4 mg PO TID PRN 01/30/17 [History] Promethazine HCl 12.5 - 25 mg PO Q8H PRN 01/30/17 [History] Allergies acetaminophen [From Darvocet-N] Allergy (Mild, Verified 06/07/16 12:24) Rash bleeding ulcer from tylenol propoxyphene [From Darvocet-N] Allergy (Mild, Verified 06/07/16 12:24) Rash gabapentin [From Neurontin] Adverse Reaction (Unknown, Verified 06/07/16 12:24) irregular heart beat duloxetine Adverse Reaction (Verified 06/07/16 12:24) Diarrhea hydrocodone [From Vicodin] Adverse Reaction (Verified 06/07/16 12:24) See Comments bleeding lorazepam [From Ativan] Adverse Reaction (Verified 01/30/17 16:29) Rash Nortriptyline Adverse Reaction (Verified 06/07/16 12:24) Diarrhea unknown nicotine patch Adverse Reaction (Uncoded 01/30/17 16:29) Palpitations All Systems Review: A 10-system review of systems was performed and is negative for pertinent findings except as documented above in the HPI. Review of Systems: Patient admits to early satiety, nausea with eating, chest pain, abdominal pain but denies, fever, cough, chills, lightheadedness, dizziness, focal neurological deficits, melena, hematochezia, hematemesis, and dysuria - Constitutional Constitutional: anorexia, fatigue - Cardiovascular Cardiovascular: dyspnea on exertion Physical Examination Vital Signs, Last 4 Hours Temp Pulse Resp BP Pulse Ox 01/31/17 11:06 98.2 F 65 24 146/82 98 General: Conversant, No Apparent Distress, Other (61-year-old female who appears very thin borderline cachectic. Patient is very anxious enforces her concern for mostly upper abdominal pain and concerns of possible neoplasm repeatedly during exam Surgical wires status post CABG are visible and palpable. ) HEENT: Atraumatic, Normocephaly, Mucus Membranes Moist Neck: No JVD, Normal carotid pulses Cardiac: Reg Rate and Rhythm, Normal S1 and S2, No Murmur Lungs: Normal Breath Sounds, No Wheeze, Rales, Rhonchi Neuro: Alert and responsive, No focal deficits noted Abdomen: Soft, Other (Abdomen soft but tender to palpation all 4 quadrants, worse around the periumbilical region and left upper quadrant. Surgical scars with no discomfort in epigastric region her very tender to palpation. Patient states she has surgical mesh in place that is causing irritation. Patient's surgical scar status post CABG are stable with her wires palpable but not exposed.) Results 01/31/17 01:27 01/31/17 01:27 Lab Results 01/30/17 01/31/17 01/31/17 18:52 01:27 01:27 WBC 8.2 Hgb 13.8 Hct 40.3 Plt Count 149 Sodium Potassium Chloride Carbon Dioxide BUN Creatinine Glucose Calcium Magnesium Total Bilirubin AST ALT Alkaline Phosphatase Troponin I 0.00 0.01 01/31/17 01:27 WBC Hgb Hct Plt Count Sodium 140 Potassium 4.2 Chloride 100 Carbon Dioxide 33 H BUN 17 Creatinine 0.91 Glucose 98 Calcium 9.1 Magnesium 2.0 Total Bilirubin 0.6 AST 13 ALT 9 Alkaline Phosphatase 102 Troponin I - Imaging and Cardiology Stress Test: report reviewed Other Results: CT abdomen and pelvis report reviewed - EKG Interpretation EKG results cardiology: personally reviewed, normal ECG, sinus rhythm Consult Discharge Plan - Plan Additional Instructions: Please follow-up with her primary care physician in the next 7-10 days for evaluation of hospital stay. Follow up with GI outpatient for continued evaluation of chronic abdominal pain. Return to the emergency department for any other concerns or problems or if your pain returns or worsens. Resume home medications. Referrals: Elvin Alejo MD [Primary Care Provider] -
--- NOTE | 2017-02-02 08:50 | Electrocardiograph Report ---
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
== END 2017-01-31 16:55 | disposition home or self-care (01) ==
LOC: EMEROO 11:45 → 3BNU 11:45
PROVIDERS: ADMIT Internal Medicine; ATTEND Registered Nurse

== ENCOUNTER 2019-08-27 07:40 | Observation (INO) ==
[2019-08-27] MEDS ORDERED: Ipratropium/Albuterol Neb 3 ML IH ONE (07:42)
[2019-08-27] MEDS ORDERED: predniSONE 20 MG TABLET PO ONE (07:42)
[2019-08-27] MEDS ORDERED: 0.9 % Sodium Chloride 500 ML IVC ONE ×2 (07:55→18:02)
[2019-08-27 08:10] LABS: Basophils % 0.2 %; Hematocrit 37.1 % (35.3-44.9); Hemoglobin 12.4 g/dL (11.5-15.4); Immature Granulocytes % 0.5 % (0-4); Lymphocytes # 1.6 K/mcL (0.6-4.6); Mean Corpuscular HGB Conc 33.4 g/dL (31.6-35.5); Mean Corpuscular Hemoglobin 30.6 pg (28.0-33.3); Mean Corpuscular Volume 91.6 fL (83.0-100.0); Mean Platelet Volume 10.1 fL (9.4-12.4); Monocytes # 1.5 K/mcL (0.0-1.3); Monocytes % 10.8 %; Neutrophils # 10.4 K/mcL (1.6-8.9); Platelet Count 125 K/mcL (140-400); Red Blood Count 4.05 M/mcL (3.82-4.97); Red Cell Distribution Width 12.2 % (11.5-14.5); Segmented Neutrophils % 76.5 %; White Blood Count 13.6 K/mcL (4.3-11.1)
[2019-08-27 08:32] LABS: BUN/Creatinine Ratio 18 (6-26); Blood Urea Nitrogen 16 mg/dL (8-23); Calcium 8.8 mg/dL (8.6-10.3); Carbon Dioxide 28 mEq/L (23-29); Chloride 94 mEq/L (98-107); Glucose 142 mg/dL (70-105); Osmolality,Calculated 276 (280-300); Potassium 3.7 mEq/L (3.5-5.1); Sodium 131 mEq/L (136-145); Troponin I 0.03 ng/mL (< 0.04); eGFR For African Americans > 60 (> 60); eGFR For Non-African Americans > 60 (> 60)
[2019-08-27] MEDS ORDERED: Furosemide 40 MG/4 ML VIAL IVP ONE (08:53)
[2019-08-27] MEDS ORDERED: Azithromycin 250 MG TABLET PO ONE (09:12)
[2019-08-27] MEDS ORDERED: Aspirin 81 MG TAB.CHEW PO ONE (09:18)
[2019-08-27] MEDS ORDERED: Albuterol 2.5 MG/3 ML NEBULIZER IH PRN (12:08)
[2019-08-27] MEDS ORDERED: Isovue-370 500 ML BOTTLE IVP ONE (14:11)
[2019-08-27] MEDS: ALPRAZolam 0.5 MG TABLET PO PRN (15:20)
[2019-08-27] MEDS: Ipratropium/Albuterol Neb 3 ML IH SCH ×2 (16:48→19:59)
[2019-08-27] MEDS: Budesonide/Formoterol 160/4.5 1 PUFF INH IH SCH (19:57)
[2019-08-27] MEDS ORDERED: Ipratropium/Albuterol Neb 3 ML IH PRN (20:09)
[2019-08-27] MEDS: *HR* OxyCODONE Immed Rel 15 MG TABLET PO PRN (21:40)
[2019-08-28 03:24] LABS: Basophils % 0.1 %; Hematocrit 32.6 % (35.3-44.9); Immature Granulocytes % 0.6 % (0-4); Lymphocytes # 0.7 K/mcL (0.6-4.6); Lymphocytes % 6.1 %; Mean Corpuscular HGB Conc 33.7 g/dL (31.6-35.5); Mean Corpuscular Hemoglobin 30.7 pg (28.0-33.3); Mean Corpuscular Volume 91.1 fL (83.0-100.0); Mean Platelet Volume 10.5 fL (9.4-12.4); Monocytes # 0.6 K/mcL (0.0-1.3); Monocytes % 5.4 %; Neutrophils # 9.6 K/mcL (1.6-8.9); Platelet Count 133 K/mcL (140-400); Red Blood Count 3.58 M/mcL (3.82-4.97); Red Cell Distribution Width 12.3 % (11.5-14.5); Segmented Neutrophils % 87.8 %; White Blood Count 10.9 K/mcL (4.3-11.1)
[2019-08-28 03:41] LABS: Alanine Aminotransferase 15 Units/L (7-52); Albumin 3.3 g/dL (3.5-5.7); Albumin/Globulin Ratio 1.2 (1.1-2.2); Alkaline Phosphatase 97 Units/L (34-104); Aspartate Amino Transferase 20 Units/L (13-39); Bilirubin,Total 0.6 mg/dL (0.3-1.0); Blood Urea Nitrogen 29 mg/dL (8-23); Carbon Dioxide 29 mEq/L (23-29); Chloride 99 mEq/L (98-107); Globulin 2.8 g/dL (2.4-3.5); Glucose 146 mg/dL (70-105); Osmolality,Calculated 290 (280-300); Sodium 136 mEq/L (136-145); Total Protein 6.1 g/dL (6.4-8.9)
[2019-08-28 04:32] LABS: BUN/Creatinine Ratio 27 (6-26); eGFR For African Americans > 60 (> 60); eGFR For Non-African Americans 52 (> 60)
[2019-08-28] MEDS: *HR* OxyCODONE Immed Rel 15 MG TABLET PO PRN ×2 (08:14→17:09)
[2019-08-28] MEDS: Budesonide/Formoterol 160/4.5 1 PUFF INH IH SCH ×2 (08:15→22:50)
[2019-08-28] MEDS ORDERED: predniSONE 20 MG TABLET PO SCH (09:00)
[2019-08-28] MEDS ORDERED: Nicotine 21 MG PATCH.TD24 TD SCH (09:00)
[2019-08-28] MEDS ORDERED: Aspirin 81 MG TAB.CHEW PO SCH (09:00)
[2019-08-28] MEDS ORDERED: Furosemide 40 MG/4 ML VIAL IVP SCH (09:00)
[2019-08-28] MEDS ORDERED: Azithromycin 250 MG TABLET PO SCH (09:00)
[2019-08-28] MEDS: Ipratropium/Albuterol Neb 3 ML IH SCH ×3 (11:03→22:50)
[2019-08-28] MEDS: ALPRAZolam 0.5 MG TABLET PO PRN (20:30)
[2019-08-29] MEDS: Ipratropium/Albuterol Neb 3 ML IH SCH ×2 (05:04→10:08)
[2019-08-29] MEDS: *HR* OxyCODONE Immed Rel 15 MG TABLET PO PRN ×3 (05:42→11:39)
[2019-08-29 06:11] LABS: Basophils % 0.2 %; Hematocrit 36.5 % (35.3-44.9); Hemoglobin 11.8 g/dL (11.5-15.4); Immature Granulocytes % 0.5 % (0-4); Lymphocytes # 1.4 K/mcL (0.6-4.6); Mean Corpuscular HGB Conc 32.3 g/dL (31.6-35.5); Mean Corpuscular Hemoglobin 30.1 pg (28.0-33.3); Mean Corpuscular Volume 93.1 fL (83.0-100.0); Mean Platelet Volume 10.6 fL (9.4-12.4); Monocytes # 0.7 K/mcL (0.0-1.3); Neutrophils # 10.8 K/mcL (1.6-8.9); Platelet Count 177 K/mcL (140-400); Red Blood Count 3.92 M/mcL (3.82-4.97); Red Cell Distribution Width 12.8 % (11.5-14.5); Segmented Neutrophils % 83.3 %
[2019-08-29 06:23] LABS: BUN/Creatinine Ratio 38 (6-26); Blood Urea Nitrogen 35 mg/dL (8-23); Calcium 9.7 mg/dL (8.6-10.3); Carbon Dioxide 32 mEq/L (23-29); Chloride 97 mEq/L (98-107); Glucose 115 mg/dL (70-105); Osmolality,Calculated 297 (280-300); Potassium 4.8 mEq/L (3.5-5.1); Sodium 139 mEq/L (136-145); eGFR For African Americans > 60 (> 60); eGFR For Non-African Americans > 60 (> 60)
[2019-08-29 07:27] VITALS: BP 119/70
[2019-08-29] MEDS: Budesonide/Formoterol 160/4.5 1 PUFF INH IH SCH (10:08)
== END 2019-08-29 12:33 | disposition home or self-care (01) ==
LOC: EMEROOARM 07:40 → 3BNU 07:40 → SUATTDRO 10:46 → 3BNU 11:49
PROVIDERS: ADMIT Family Medicine; ATTEND Family Medicine